=== PATIENT | male | born 1985 | race Caucasian/White ===

== ENCOUNTER 2021-06-29 09:28 | Emergency (ER) | payer OTHER, SELFPAY ==
--- NOTE | ~2021-06-29 | XR_ITS ---
EXAMINATION: XR chest 1V portable EXAM DATE: 06/29/2021 10:15 INDICATION: Cough, cold and hot spells. TECHNIQUE: Portable AP frontal chest x-ray was obtained. There is no prior study for comparison. FINDINGS: The lungs are clear. There are no pleural effusions. Cardiac silhouette is prominent but magnified on this AP technique. There is no pneumothorax suspected. 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 IMPRESSION: 1. No acute cardiopulmonary findings. 2. 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 Reviewed, dictated and finalized at location A. K AND TRANSPORT MECHANIC
[2021-06-29 09:32] VITALS: BP 125/86; PULSE 64; RESP 18; TEMP 36.9; O2SAT 100
--- NOTE | 2021-06-29 10:28 | ECG_ITS ---
Measurements Intervals [place] Rate: 60 P: 56 [place]: 137 QRS: -2 QRSD: 105 T: 29 QT: 399 QTc: 399 Interpretive Statements SINUS RHYTHM NORMAL ECG Electronically Signed On 06-29-2021 12:04:44 VICE ADMIRAL by Eros Lua D.O.
--- NOTE | 2021-06-29 10:42 | ED.GENADULT ---
HPI - General Adult General Chief complaint: Unspecified Stated complaint: cold symptoms Time Seen by Provider: 06/29/21 09:30 Source: RN notes reviewed History of Present Illness HPI narrative: Patient presents emergency room from home for shortness of breath. Patient states that for the past 4 days he has been having feelings of being hot and cold but has had no measured temperature at home. He states over the past 2 days has been having shortness of breath worse with exertion denies any rhinorrhea sore throat cough abdominal pain chest pain nausea vomiting or any other symptoms states that sitting he does not have shortness of breath time. He states that with the symptoms he has had a general feeling of fatigue Related Data Allergies Allergy/AdvReac Type Severity Reaction Status Date / Time No Known Allergies Allergy Mild Verified 04/25/17 07:49 Review of Systems Review of Systems: Gen.: Denies fevers or chills ENT: Denies congestion Respiratory: See HPI CV: Denies chest pain or palpitations GI: Denies abdominal pain nausea, emesis or diarrhea denies burning, urgency, frequency or hematuria Musculoskeletal: Denies back pain or muscle pain Neuro: Denies numbness, tingling, reports generalized fatigue Skin: Denies rash Except as documented, all other systems reviewed and negative [facility] Past Medical History Medical History (Updated 06/29/21 @ 11:59 by Jalen Landis DO) Patient denies significant medical history Family History Family History (Updated 11/10/16 @ 23:56 by DOCTOR UNKNOWN) Mother Patient's mother is in good health Father Patient's father is in good health Sibling Patient's brother is in good health Other Family history of malignant neoplasm of bone Social History Social History Smoking status: Never smoker Alcohol intake: current Exam Narrative: APPEARANCE: No acute distress, nontoxic, resting in bed EYES: EOMI HEENT: Normocephalic, atraumatic, OMM RESPIRATORY: No respiratory distress Clear to auscultation bilaterally with no rhonchi wheezing or rales. CARDIOVASCULAR: Regular rate and rhythm without murmurs rubs or gallops. ABDOMINAL: Soft, nontender, nondistended, no rebound or guarding MUSCULOSKELETAl: Moves all extremities. No clubbing, cyanosis or edema. NEURO: Awake and alert. Following commands, speech normal, no focal deficits SKIN:: Warm, dry. No rashes lesions or abrasions PSYCHIATRIC: Normal affect/mood, Course Course Emergency Course: Patient had a negative Covid test yesterday Discussed with patient results of workup and diagnosis. Discussed need for follow-up with primary care, proper use of medication, and reasons to return to the emergency department. Patient understands and agrees to current treatment plan Vital Signs Vital signs: Vital Signs Temperature 98.4 F 06/29/21 09:32 Pulse Rate 64 06/29/21 09:32 Respiratory Rate 18 06/29/21 09:32 Blood Pressure 125/86 06/29/21 09:32 Pulse Oximetry 100 06/29/21 09:32 Temperature 98.4 F 06/29/21 09:32 Pulse Rate 64 06/29/21 09:32 Respiratory Rate 18 06/29/21 09:32 Blood Pressure 125/86 06/29/21 09:32 Pulse Oximetry 100 06/29/21 09:32 Medical Decision Making MDM Narrative Medical decision making narrative: Patient has dyspnea of unclear etiology. No wheezing on clinical exam. Low risk well score, PE is felt unlikely. No abnormalities noted on chest x-ray. Patient?s EKG is without high-risk changes. Oxygen saturations are normal. Patient is felt to be a reasonable candidate for additional evaluation as an outpatient. Vital Signs Vital Signs: Vital Signs Temperature 98.4 F 06/29/21 09:32 Pulse Rate 64 06/29/21 09:32 Respiratory Rate 18 06/29/21 09:32 Blood Pressure 125/86 06/29/21 09:32 Pulse Oximetry 100 06/29/21 09:32 Temperature 98.4 F 06/29/21 09:32 Pulse Rate 64 06/29/21 09:32 Respi
[2021-06-29 11:00] VITALS: BP 119/79; PULSE 65; RESP 18; O2SAT 99
[2021-06-29 11:00] LABS: Basophils Percent Auto 0.8 % (0.2-1.2); Eosinophils Absolute Auto 0.1 K/mm3 (0-0.3); Eosinophils Percent Auto 1.4 % (0-4.4); Hematocrit 44.1 % (42.0-52.0); Hemoglobin 14.7 g/dL (14.0-18.0); Immature Granulocyte Absolute 0.01 K/mm3 (0.00-0.031); Immature Granulocyte Percent A 0.2 % (0-0.5); Lymphocytes Absolute Auto 1.07 K/mm3 (0.9-3.2); Lymphocytes Percent Auto 21.6 % (18.3-44.2); Mean Corpuscular HGB Conc 33.3 g/dl (32-36); Mean Corpuscular Hemoglobin 27.5 pg (26-34); Mean Corpuscular Volume 82.4 fl (80-100); Mean Platelet Volume 9.2 fl (7.4-10.4); Monocytes Absolute Auto 0.9 K/mm3 (0.1-0.6); Monocytes Percent Auto 18.1 % (2.6-8.5); Neutrophils Absolute Auto 2.9 K/mm3 (1.3-6.7); Neutrophils Percent Auto 57.9 % (45.5-73.1); Platelet Count Result 178 k/mm3 (150-375); Red Blood Count 5.35 M/mm3 (4.6-6.20); Red Cell Distribution Width 14.3 % (11.5-14.5)
[2021-06-29 11:12] LABS: Alanine Aminotransferase 23 U/L (4-50); Albumin Level 4.2 g/dL (3.5-5.1); Alkaline Phosphatase 58 U/L (38-126); Anion Gap 7 mmol/L (8-16); Aspartate Amino Transferase 28 U/L (17-59); Bilirubin,Total 0.5 mg/dL (0.2-1.3); Blood Urea Nitrogen 16 mg/dL (9-20); Calcium 8.7 mg/dL (8.4-10.2); Carbon Dioxide 27 mmol/L (22-30); Chloride 101 mmol/L (98-107); Estimated CRCL calculation 97 ml/min; Estimated Glomerular Filt Rate > 60; Glucose 108 mg/dL (65-110); Potassium 4.1 mmol/L (3.4-5.0); Sodium 135 mmol/L (137-145)
[2021-06-29 11:13] LABS: D Dimer 0.39 ug/mL (<0.48)
[2021-06-29 11:25] LABS: NT Pro B Type Natriuretic Pept 75 pg/mL (5-100); Troponin I < 0.012 ng/mL (0.000-0.034)
[2021-06-29 11:30] VITALS: BP 110/74; PULSE 67; RESP 18; O2SAT 99
[2021-06-29 12:05] VITALS: BP 103/72; PULSE 66; RESP 18; O2SAT 99
== END 2021-06-29 12:05 | disposition home or self-care (01) ==
PROVIDERS: Emergency Provider Emergency Medicine; PCP Family Medicine
DX: R06.00 Dyspnea, unspecified (principal); Q76.49 Other congenital malformations of spine, not associated with scoliosis
CPT/HCPCS: 36415; 71045; 80053; 83880; 84484; 85025; 85380; 93005; 99284

== ENCOUNTER → 2021-07-29 07:16 | Outpatient (CLI) | payer OTHER, SELFPAY ==
[2021-07-29 19:18] LABS: SARS-CoV-2 RNA PCR Negative
== END ==
PROVIDERS: Nurse Practitioner Gerontology; PCP Family Medicine; Visit Provider Family Medicine
DX: R68.89 Other general symptoms and signs (principal); Z20.822 Contact with and (suspected) exposure to COVID-19
CPT/HCPCS: C9803; U0003; U0005

== ENCOUNTER 2024-09-14 22:41 | Emergency (ER) | payer OTHER, SELFPAY ==
--- NOTE | ~2024-09-14 | XR_ITS ---
Clinical Indication: Cough PA and lateral views of the chest: Comparison: 05/29/2021 Findings: The lungs are clear, without evidence of focal consolidation or pleural effusion. Cardiome diastinal silhouette is within normal limits. Bones and soft tissues are unremarkable. Impression: Normal chest. Reviewed, dictated and finalized at [facility]. ANNEALER Impression: Normal chest.
--- OUTSIDE RECORDS SUMMARY | 2024-09-14 22:43 | XMS_ITS | Clinical Summary ---
Author Organization [facility] Address [address] [place] [address] Care Team Providers Care Pre Sales Technical Consultant Name Role Phone Deep Chang MD Primary Care Provider Allergies No known active allergies Medications No known medications Active Problems Problem Noted Date Diagnosed Date Prediabetes 09/11/2023 Assessment & Plan (09/11/2023 1:10 PM WRITER EDITOR): - new, noted on lab work obtained - A1c 5.7 on 09/2023 - manage via lifestyle, healthy diet, and weight control - will continue to monitor Lab Results Component Value Date HGBA1C 5.7 (H) 09/10/2023 Class 1 obesity due to exces s calories without serious comorbidity with body mass index (BMI) of 32.0 to 32.9 in adult 07/19/2021 Assessment & Plan (09/10/2023 1:29 PM WRITER EDITOR): Wt Readings from Last 3 Encounters: 09/10/23 107.2 kg (236 lb 4.8 oz) 12/02/22 104.3 kg (230 lb) 08/21/22 105.4 kg (232 lb 4.8 oz) Body mass index is 32.04 kg/m . - chronic, not at goal, worse --> small weight gain noted - BMI Follow-up includes: nutrition counseling, exercise counseling and education provided Assessment & Plan (08/21/2022 10:22 AM WRITER EDITOR): Wt Readings from Last 3 Encounters: 08/21/22 105.4 kg (232 lb 4.8 oz) 08/02/22 106.1 kg (234 lb) 07/19/21 100.9 kg (222 lb 8 oz) Body mass index is 31.51 kg/m . - chronic, not at goal, small weight gain noted - BMI Follow-up includes: nutrition counseling, exercise counseling and education provided Assessment & Plan (07/19/2021 10:53 AM WRITER EDITOR): Wt Readings from Last 3 Encounters: 07/19/21 100.9 kg (222 lb 8 oz) 07/07/21 99.8 kg (220 lb) Body mass index is 30.17 kg/m . - chronic, stable - BMI Follow-up includes: nutrition counseling, exercise counseling and education provided Preventative health care 07/19/2021 Assessment & Plan (09/11/2023 1:11 PM WRITER EDITOR): - Acute concerns or chronic conditions that are worse: new diagnosis of pre- diabetes, small weight gain with Obesity - Mental health: no significant psychiatric/mental health conditions affecting her day to day functioning - Dental health: up to date, he does regular tooth brushing, flossing, and dental visits every 6 months. - Nutrition: recommend importance of moderation in sodium/caffeine intake, saturated fat and cholesterol, caloric balance, sufficient intake of fresh fruits, vegetables. He has cut out soda intake - Exercise: recommend regular exercise, stays physically active Prostate cancer screening: N/A Colon cancer screening: N/A Lung cancer screening: N/A Assessment & Plan (08/21/2022 10:23 AM WRITER EDITOR): - Acute concerns: no major acute concerns or issues - Mental health: no significant psychiatric/mental health conditions affecting her day to day functioning - Dental health: up to date, he does regular tooth brushing, flossing, and dental visits every 6 months. - Nutrition: recommend importance of moderation in sodium/caffeine intake, saturated fat and cholesterol, caloric balance, sufficient intake of fresh fruits, vegetables. He has cut out soda intake - Exercise: recommend regular exercise, stays physically active Prostate cancer screening: N/A Colon cancer screening: N/A Lung cancer screening: N/A Assessment & Plan (07/19/2021 10:54 AM WRITER EDITOR): - Acute concerns: discussed about hernia - Mental health: no significant psychiatric/mental health conditions affecting her day to day functioning - Dental health: recommend regular tooth brushing, flossing, and dental visits. - Nutrition: recommend importance of moderation in sodium/caffeine intake, saturated fat and cholesterol, caloric balance, sufficient intake of fresh fruits, vegetables - Exercise: recommend regular exercise Umbilical hernia without obstruction and without gangrene 07/19/2021 Assessment & Plan (09/10/2023 1:28 PM WRITER EDITOR): - chronic, stable - small umbilical hernia without obstruction - discussed to continue monitoring given no symptoms and small size - avoid heavy lifting and things that would put a lot of abdominal pressure - aware of signs that would be an emergency, severe abdominal pain, hernia obstruction Assessment & Plan (08/21/2022 10:21 AM WRITER EDITOR): - chronic, stable - small umbilical hernia without obstruction - discussed to continue monitoring given no symptoms and small size - avoid heavy lifting and things that would put a lot of abdominal pressure - aware of signs that would be an emergency, severe abdominal pain, hernia obstruction Assessment & Plan (07/19/2021 10:55 AM WRITER EDITOR): - chronic, stable - small umbilical hernia without obstruction - discussed to continue monitoring given no symptoms and small size - avoid heavy lifting and things that would put a lot of abdominal pressure - can wear abdominal binder - discussed warning sings that would be an emergency, severe abdominal pain, hernia obstruction Scoliosis 07/19/2021 Assessment & Plan (09/10/2023 1:37 PM WRITER EDITOR): - chronic, stable - diagnosed in childhood - no ongoing back pain - no hx of braces or surgery Assessment & Plan (07/19/2021 10:59 AM WRITER EDITOR): - chronic, stable - diagnosed in childhood - no ongoing back pain - no hx of braces or surgery - will obtain imaging in future visits if cannot find one completed in medical records Dermatofibroma 07/19/2021 Assessment & Plan (07/19/2021 11:00 AM WRITER EDITOR): - new diagnosis, noted on left lower extremity, discussed etiology and benign status, continue to monitor from time to time for changes in shape, size, color Resolved Problems Problem Noted Date Diagnosed Date Resolved Date Microscopic hematuria 07/19/20212023 Assessment & Plan (08/21/2022 10:22 AM WRITER EDITOR): - reviewed outside records - noted in the past and was supposed to have repeat done - repeat UA with microscopy ordered - if consecutive abnormal findings, will refer to Urology Assessment & Plan (07/19/2021 10:53 AM WRITER EDITOR): - new diagnosis - reviewed outside records - discussed that it needs to be repeated - order placed for UA microscopic in 3 months - if consecutive abnormal findings, will refer to Urology Immunizations Name Administration Dates Next Due Influenza, Quadrivalent, Liv l Culture-based MDCK, Preservative Free, Antibiotic Free, Intramuscular 05/15/2019 Influenza, Quadrivalent, Spl it, Preservative Free, Intramuscular 07/19/2021,05/09/2018 Influenza, Trivalent, Preser vative Free, Intramuscular 05/21/2017 Influenza, Unspecified 09/10/2023(Deferr ed: Patient Refused),08/21/2022(Deferred: Patient Refused),05/06/2020(Deferred: Patient Refused) Tdap 10/08/2013 Family History Medical History Relation Name Comments Bipolar disorder Brother No Known Problems Son 1 No Known Problems Son 2 Relation Name Status Comments Brother Alive Daughter Alive Son 1 Alive Son 2 Alive Social History Tobacco Use Types Packs/Day Years Used Date Smoking Tobacco: Never Smokeless Tobacco: Never Tobacco Cessation:Counseling Given: Not Answered AUDIT-C Answer Date Recorded Q1: How often do you have a drink containing alcohol? Never 09/10/2023 Q2: How many drinks containi ng alcohol do you have on a typical day when you are drinking? Patient does not drink Q3: How often do you have si x or more drinks on one occasion? Never 09/10/2023 PHQ-2 Answer Date Recorded PHQ-2 Total Score (If total score is 3 or more points, staff should administer the PHQ-9) 0 09/10/2023 Personal Safety Answer Date Recorded Getting School Help Needed Not on file 07/27 Sex and Gender Information Value Date Recorded Sex Assigned at Not on file Legal Sex Male 1:28 PM WRITER EDITOR Gender Identity Not on file Sexual Orientation Not on file Obstetrics History Last Filed Vital Signs Vital Sign Reading Time Taken Comments Blood Pressure 122/81 01/25/2024 8:07 AM CDT Pulse 74 01/25/2024 8:07 AM CDT Temperature 37.1 C (98.8 F) 01/25/2024 8:07 AM CDT Respiratory Rate 20 01/25/2024 8:07 AM CDT Oxygen Saturation 98% 01/25/2024 8:07 AM CDT Inhaled Oxygen Concentration - - Weight 105.2 kg (232 lb) 01/25/2024 8:07 AM CDT Height 182.9 cm (6') 01/25/2024 8:07 AM CDT Body Mass Index 31.46 01/25/2024 8:07 AM CDT Plan of Treatment Health Maintenance Due Date Last Done Comments Hepatitis C Screening 1983 Varicella Vaccines (1 of 2 - 13+ 2-dose series) 1996 Hepatitis B Screening 2001 DTaP/Tdap/Td Vaccine (2 - Td or Tdap) 10/09/2023 10/08/2013 Covid-19 Vaccine ( season) 2024 04/13/2021, 03/23/2021 Influenza Vaccine (#1) 2024 , 05/15/2019, 05/09/2018, Additional history exists Depression Screening 09/10/2024 09/10/2023, 08/21/2022, 07/19/2021 Regular Well Visit/Exam 18-64 09/10/2024 09/10/2023, 08/21/2022, 07/19/2021 HPV Vaccines Aged Out No longer eligi ble based on patient's age to complete this topic Pneumococcal vaccine <65 Aged Out No longer eligible based on patient's age to complete this topic Insurance [facility] [place] [id number] [employer] [place] [id number] [facility] [place] [id number] [employer] [place] [id number] Care Teams Pre Sales Technical Consultant Relationship Specialty Start Date End Date Deep Chang MD PCP - General Family Medicine 07/19/21
--- OUTSIDE RECORDS SUMMARY | 2024-09-14 22:43 | XMS_ITS | Patient Health Summary ---
Author Organization [facility] Address [address] [place] [address] Care Team Providers Care Tooling Specialist Name Role Phone Clara Garg MD Primary Care Provider + Note from [facility],non-owned Affiliates and Associated Physician Practices is amultiple site organization consisting of ambulatory clinics and hospital sitesin [place], [place], [place] and [place]. This disclosure is being madepursuant to the Care Everywhere program and may not contain all information available regarding this patient. Last updated 18.[facility] Allergies No known active allergies Medications Be aware that medications may not be up to date on this document. Always verify current medications with the patient. No known medications Social History Tobacco Use Types Packs/Day Years Used Date Smoking Tobacco: Never Smokeless Tobacco: Never Sex and Gender Information Value Date Recorded Sex Assigned at Not on file Gender Identity Not on file Sexual Orientation Not on file Last Filed Vital Signs Vital Sign Reading Time Taken Comments Blood Pressure 128/86 01/03/2019 11:06 AM CDT Pulse 89 01/03/2019 11:06 AM CDT Temperature 36.9 C (98.4 F) 01/03/2019 11:06 AM CDT Respiratory Rate 16 01/03/2019 11:06 AM CDT Oxygen Saturation 96% 01/03/2019 11:06 AM CDT Inhaled Oxygen Concentration - - Weight 99.8 kg (220 lb) 01/03/2019 11:06 AM CDT Height 185.4 cm (6' 1 ) 01/03/2019 11:06 AM CDT Body Mass Index 29.03 01/03/2019 11:06 AM CDT Procedures * CULTURE THROAT(Performed 03/02/2018) Performed for Acute pharyngitis, unspecified etiology * STREP A SCREEN - POINT OF CARE (AMB) STL(Performed 03/02/2018) Performed for Acute pharyngitis, unspecified etiology Results * CULTURE THROAT (03/02/2018 3:04 PM CDT) Culture [facility] Comment: CULTURE, THROAT MICRO NUMBER: [id number] TEST STATUS: FINAL SPECIMEN SOURCE: THROAT SPECIMEN QUALITY: ADEQUATE RESULT: No oropharyngeal pathogens recovered. Test Performed at: [email or web address] [id number] KARLIE CAN MD Microbiology ENTIRE THROAT (SURFACE REGION OF NECK) / Unknown 03/02/2018 3:04 PM CDT 03/02/2018 10:58 PM CDT [facility] - MICROBIOLOG Y ORDERABLES [address] [address] * STREP A SCREEN (03/02/2018 2:55 PM CDT) Strep A Rapid POCT Negative Negative Strep A Internal Control Present Lot # [id number] Expiration Date 08 22 2019 Throat ENTIRE THROAT (SURFACE REGION OF NECK) / Unknown 03/02/2018 2:55 PM CDT [facility] - POINT OF CA RE ORDERABLES Care Teams Tooling Specialist Relationship Specialty Start Date End Date Clara Garg MD [address] [place] [address] PCP - General Family Medicine 03/02/18
--- OUTSIDE RECORDS SUMMARY | 2024-09-14 22:43 | XMS_ITS | Referral Summary ---
Author Organization [facility] Address [address] [place] [address] Care Team Providers Care Online Affiliate Marketing Manager Name Role Phone Deep Chang MD Primary Care Provider Allergies No known active allergies Medications No known medications Active Problems Problem Noted Date Diagnosed Date Prediabetes 09/11/2023 Assessment & Plan (09/11/2023 1:10 PM DELINQUENT ACCOUNT CLERK): - new, noted on lab work obtained [...] 07/19/2021 Assessment & Plan (09/10/2023 1:29 PM DELINQUENT ACCOUNT CLERK): Wt Readings from Last 3 Encounters: 09/10/23 107.2 kg (236 lb 4.8 oz) 12/02/22 104.3 kg (230 lb) 08/21/22 105.4 kg (232 lb 4.8 oz) Body mass index is 32.04 kg/m . - chronic, not at goal, worse --> small weight gain noted - BMI Follow-up includes: nutrition counseling, exercise counseling and education provided Assessment & Plan (08/21/2022 10:22 AM DELINQUENT ACCOUNT CLERK): Wt Readings from Last 3 Encounters: 08/21/22 105.4 kg (232 lb 4.8 oz) 08/02/22 106.1 kg (234 lb) 07/19/21 100.9 kg (222 lb 8 oz) Body mass index is 31.51 kg/m . - chronic, not at goal, small weight gain noted - BMI Follow-up includes: nutrition counseling, exercise counseling and education provided Assessment & Plan (07/19/2021 10:53 AM DELINQUENT ACCOUNT CLERK): Wt Readings from Last 3 Encounters: 07/19/21 100.9 kg (222 lb 8 oz) 07/07/21 99.8 kg (220 lb) Body mass index is 30.17 kg/m . - chronic, stable - BMI Follow-up includes: nutrition counseling, exercise counseling and education provided Preventative health care 07/19/2021 Assessment & Plan (09/11/2023 1:11 PM DELINQUENT ACCOUNT CLERK): - Acute concerns or chronic conditions that [...] N/A Assessment & Plan (08/21/2022 10:23 AM DELINQUENT ACCOUNT CLERK): - Acute concerns: no major acute concerns [...] N/A Assessment & Plan (07/19/2021 10:54 AM DELINQUENT ACCOUNT CLERK): - Acute concerns: discussed about hernia - [...] 07/19/2021 Assessment & Plan (09/10/2023 1:28 PM DELINQUENT ACCOUNT CLERK): - chronic, stable - small umbilical hernia without obstruction - discussed to continue monitoring given no symptoms and small size - avoid heavy lifting and things that would put a lot of abdominal pressure - aware of signs that would be an emergency, severe abdominal pain, hernia obstruction Assessment & Plan (08/21/2022 10:21 AM DELINQUENT ACCOUNT CLERK): - chronic, stable - small umbilical hernia without obstruction - discussed to continue monitoring given no symptoms and small size - avoid heavy lifting and things that would put a lot of abdominal pressure - aware of signs that would be an emergency, severe abdominal pain, hernia obstruction Assessment & Plan (07/19/2021 10:55 AM DELINQUENT ACCOUNT CLERK): - chronic, stable - small umbilical hernia without obstruction - discussed to continue monitoring given no symptoms and small size - avoid heavy lifting and things that would put a lot of abdominal pressure - can wear abdominal binder - discussed warning sings that would be an emergency, severe abdominal pain, hernia obstruction Scoliosis 07/19/2021 Assessment & Plan (09/10/2023 1:37 PM DELINQUENT ACCOUNT CLERK): - chronic, stable - diagnosed in childhood - no ongoing back pain - no hx of braces or surgery Assessment & Plan (07/19/2021 10:59 AM DELINQUENT ACCOUNT CLERK): - chronic, stable - diagnosed in childhood - no ongoing back pain - no hx of braces or surgery - will obtain imaging in future visits if cannot find one completed in medical records Dermatofibroma 07/19/2021 Assessment & Plan (07/19/2021 11:00 AM DELINQUENT ACCOUNT CLERK): - new diagnosis, noted on left lower extremity, discussed etiology and benign status, continue to monitor from time to time for changes in shape, size, color Resolved Problems Problem Noted Date Diagnosed Date Resolved Date Microscopic hematuria 07/19/20212023 Assessment & Plan (08/21/2022 10:22 AM DELINQUENT ACCOUNT CLERK): - reviewed outside records - noted in the past and was supposed to have repeat done - repeat UA with microscopy ordered - if consecutive abnormal findings, will refer to Urology Assessment & Plan (07/19/2021 10:53 AM DELINQUENT ACCOUNT CLERK): - new diagnosis - reviewed outside records [...] Refused),08/21/2022(Deferred: Patient Refused),05/06/2020(Deferred: Patient Refused) Tdap 10/08/2013 Social History Tobacco Use Types Packs/Day Years [...] on file Legal Sex Male 1:28 PM DELINQUENT ACCOUNT CLERK Gender Identity Not on file Sexual Orientation [...] 01/25/2024 8:07 AM CDT Plan of Treatment Not on file Insurance [facility] [place] [id number] [facility] [place] [address] [employer] PPO [employer] PPO Care Teams Online Affiliate Marketing Manager Relationship Specialty Start Date End Date Deep Chang MD PCP - General Family Medicine 07/19/21
--- OUTSIDE RECORDS SUMMARY | 2024-09-14 22:43 | XMS_ITS | Referral Summary ---
Author Organization [facility] Address [address] [place] [address] Care Team Providers Care Lift Mechanic Name Role Phone Clara Garg MD Primary Care Provider + Source Comments [facility],non-owned Affiliates and Associated Physician Practices is amultiple site organization consisting of ambulatory clinics and hospital sitesin [place], [place], [place] and [place]. This disclosure is being madepursuant to the Care Everywhere program and may not contain all information available regarding this patient. Last updated [email or web address] Allergies No known active allergies Medications Be [...] Mass Index 29.03 01/03/2019 11:06 AM CDT Plan of Treatment Not on file Care Teams Lift Mechanic Relationship Specialty Start Date End Date Clara Garg MD [address] [place] [address] PCP - General Family Medicine 03/02/18
--- OUTSIDE RECORDS SUMMARY | 2024-09-14 22:43 | XMS_ITS | Clinical Summary ---
Author Organization [facility] Address [address] [place] [address] Care Team Providers Care Vp Of Customer Experience Strategy Name Role Phone Unavailable Primary Care Provider Unavailabl e Social History Tobacco Use Types Packs/Day Years Used Date Smoking Tobacco: Never Assessed Sex and Gender Information Value Date Recorded Sex Assigned at Not on file Legal Sex Male 1:15 PM CDT Gender Identity Not on file Sexual Orientation Not on file Plan of Treatment Health Maintenance Due Date Last Done Comments Annual Physical 1986 Hepatitis C 2001 Hepatitis B Vaccines (1 of 3 - 19+ 3-dose series) 2002 DTaP, Tdap and Td Vaccines (2 - Td or Tdap) 10/09/2023 10/08/2013 COVID-19 Vaccine (3 - season) 2024 04/13/2021, 03/23/2021 Influenza Adult (#1) 2024 07/19/2021, 05/15/2019, 05/09/2018, Additional history exists HPV Vaccines Aged Out No longer eligi ble based on patient's age to complete this topic Meningococcal B Vaccine Aged Out No l onger eligible based on patient's age to complete this topic Meningococcal Vaccine Aged Out No yo keiry eligible based on patient's age to complete this topic Pneumococcal Vaccine: Pediatrics (0 to 5 Years) and At-Risk Patients (6 to 64 Years) Aged Out No longer eligible based on patient's age to complete this topic RSV Immunizations Under 20 Months Aged Out No longer eligible based on patient's age to complete this topic
--- OUTSIDE RECORDS SUMMARY | 2024-09-14 22:43 | XMS_ITS | Continuity of Care Document ---
Author Name [facility] Organization [facility] Care Team Providers Care Business Services Specialist Sales Name Role Phone [facility] Unavailable Unavailable Allergies, Adverse Reactions, Alerts Combined list of allergies from Department of Defense and Veterans Affairs facilities. It does not include entries that were removed or entered in error. Substance Category Reaction Severity Reaction type Status Date Reported Comments Source No Known Allergies Drug allergy (disorder) active 09/28/[address] [place] [address] [place] [facility] Encounters Combined list of: 1) Encounters from Department of Veterans Affairs facilities going backup to the last 18 months, not all [place] inpatient encounters are included; 2) Encounters from the Department of Defense facilities going backup to 280 months. Location Location Details Encounter Type Encounter Number Reason For Visit Attending Provider ADM Date DC Date Status Disposition Source [address] [place] [address] Gabriel [place] [facility] ) TELE CONSULT [id number] 1 Notes Entered by: CECILY ESTRELLA 11 Aug 2021 1309 ------- ------- ------- ------- -- Bi haynes - - tsg JOSE GARCÍA 08/11 Other Not Elsewhere Classified [address] [place] [address] Gabriel [place] [facility] [address] [place] [address] Gabriel [place] [facility] ) TELE CONSULT [id number] Notes Entered by: DEVON PALOMARES 12 Sep 2021 1019 ------- ------- ------- ------- -- Ervin haynes/non enrolle e/ JOSE GARCÍA 09/12 Other Not Elsewhere Classified [address] [place] [address] Gabriel JACKSON [facility] [address] [place] [address] Gabriel [place]en [facility] ) TELE CONSULT [id number] 6 Notes Entered by: ELIZABETH OTTO 14 Sep 2021 1010 ------- ------- ------- ------- -- non enrolle e-pre employm ent physica l/[phone] JOSE Angelo 09/14 Other Not Elsewhere Classified [address] [place] [address])([facility]) [address] [place] [address])([facility] ) TELE CONSULT [id number] Notes Entered by: AMANDO BANDA 30 Sep 2021 1201 ------- ------- ------- ------- -- Resched ule Appt Request /Non-en rollee/ JOSE GUADALUPE CEBALLOS 09/30 Referred for Appointment [address] [place] [address] Gabriel [facility])([facility]) [address] [place] [address] Gabriel [facility])([facility]) OUTPATIENT [id number] Pre-Emp loyment QUEENIE LIN 10/06 Released w/o Limitations [address] [place] [address])([facility]) Procedures Combined list of: 1) Procedures from Department of Veterans Affairs facilities [facility], not all [place] non-surgical procedures are included; 2) All procedures from the Department of Defense facilities. Procedure Procedure Type Code Date Perfomer Comments Sourc e QUALIFIED NONPHYSICIAN HEALTH UNIVERSAL BANKER ONLINE DIGITAL ASSESSMENT AND MANAGEMENT, FOR AN ESTABLISHED PATIENT, FOR UP TO 7 DAYS, CUMULATIVE TIME DURING THE 7 DAYS; 5-10 MINUTES 10/07/2021 [facility] TELE ASSESS & MGT SRV PROV QUAL NONPHYS HLTH CARE PRO TO EST PAT,PARENT,GUARD NOT ORIG REL ASSESS & MGT SRV PROV W/IN PREV 7 DAYS NOR LEAD ASSESS & MGT SRV/PX W/IN NXT 24 HR/SOON APT;5-10 MIN MED DIS 09/14/2021 [facility] TELE ASSESS & MGT SRV PROV QUAL NONPHYS HLTH CARE PRO TO EST PAT,PARENT,GUARD NOT ORIG REL ASSESS & MGT SRV PROV W/IN PREV 7 DAYS NOR LEAD ASSESS & MGT SRV/PX W/IN NXT 24 HR/SOON APT;5-10 MIN MED DIS 09/12/2021 [facility] TELE ASSESS & MGT SRV PROV QUAL NONPHYS HLTH CARE PRO TO EST PAT,PARENT,GUARD NOT ORIG REL ASSESS & MGT SRV PROV W/IN PREV 7 DAYS NOR LEAD ASSESS & MGT SRV/PX W/IN NXT 24 HR/SOON APT;5-10 MIN MED DIS 08/11/2021 [facility] Non-Physician Phone Call To Patient/Provider Brief (5-10min) Non-Physician Phone Call To Patient/Provider Brief (5-10min) [id number] JOSE GARCÍA [facility] Preventive Medicine Administration Of Health Risk Questionnaire Patient-Focused Preventive Medicine Administration Of Health Risk Questionnaire Patient-Focused [id number] QUEENIE LIN [facility] Internet Med Svc Qual Nonphys Healthcare Prof Up To 7 Days Estab Pt 5-10 Min Internet Med Svc Qual Nonphys Healthcare Prof Up To 7 Days Estab Pt 5-10 Min [id number] QUEENIE LIN [facility] Social History Combined list of available smoking, tobacco, and other social history from Department of Defense and Veterans Affairs facilities. Social History Type Response Date Comment Sourc e This section is an empty social history section. [facility]
--- OUTSIDE RECORDS SUMMARY | 2024-09-14 22:43 | XMS_ITS | Clinical Summary ---
Author Organization [facility] Address [address] [place] [address] Care Team Providers Care Rn Picu Name Role Phone Clara Garg MD Primary Care Provider + Source Comments [facility],non-owned Affiliates and Associated Physician Practices is amultiple site organization consisting of ambulatory clinics and hospital sitesin [place], [place], [place] and [place]. This disclosure is being madepursuant to the Care Everywhere program and may not contain all information available regarding this patient. Last updated 18.[employer] Allergies No known active allergies Medications Be [...] 01/03/2019 11:06 AM CDT Plan of Treatment Health Maintenance Due Date Last Done Comments LIPID TESTING 1983 HIV SCREENING 1998 HEPATITIS C SCREENING 03/23/2001 DTAP/TDAP/TD VACCINES (1 - Tdap) 2002 HEPATITIS B VACCINE (1 of 3 - 19+ 3-dose series) 2002 COVID-19 VACCINE (1 - 2023-2 5 season) 2024 INFLUENZA VACCINE (#1) 2024 DEPRESSION SCREENING 08/06/2024 ZOSTER VACCINE (1 of 2) 2033 HIB VACCINE Aged Out No longer eligi ble based on patient's age to complete this topic HPV VACCINE Aged Out No longer eligi ble based on patient's age to complete this topic MENINGOCOCCAL (Group B) VACCINE Aged Out No longer eligible based on patient's age to complete this topic MENINGOCOCCAL VACCINE Aged Out No yo keiry eligible based on patient's age to complete this topic PNEUMOCOCCAL VACCINE Aged Out No long er eligible based on patient's age to complete this topic Care Teams Rn Picu Relationship Specialty Start Date End Date Clara Garg MD [address] [place] [address] PCP - General Family Medicine 03/02/18
[2024-09-14 22:54] VITALS: BP 122/77; PULSE 65; RESP 19; TEMP 36.4; O2SAT 95
[2024-09-14 22:57] VITALS: O2SAT 94
--- NOTE | 2024-09-14 23:08 | ED.URI ---
HPI - URI/Sore Throat General Chief Complaint: Upper Respiratory Infection Stated Complaint: fever, cough Time Seen by Provider: 09/14/24 22:54 History of Present Illness HPI Narrative: 39-year-old male with no past medical history presents emergency department for URI symptoms for the past 3 days. Patient reporting productive cough, nasal congestion, sore throat and ear fullness. Patient states his children were sick with similar symptoms a few days before his symptoms started. He reports fevers at home around 101-102 at home for which he has been taking ibuprofen with some improvement. Denies abdominal pain, N/ V/D. Related Data Allergies Allergy/AdvReac Type Severity Reaction Status Date / Time No Known Allergies Allergy Mild Verified 09/14/24 22:59 Review of Systems Review of Systems: All systems reviewed & are unremarkable except as noted in HPI and below PMFSH Past Medical History Medical History Patient denies significant medical history Family History Family History Mother Patient's mother is in good health Father Patient's father is in good health Sibling Patient's brother is in good health Other Family history of malignant neoplasm of bone Social History Social History Smoking status: Never smoker Alcohol intake: current Exam Narrative: GENERAL: Well-appearing, well-nourished, and in no acute distress. HEAD: Normocephalic, atraumatic. EYES: PERRLA and EOMI. ENT: Nares clear, no rhinorrhea or epistaxis. Mucous membranes moist. right TM with effusion, no erythema or bulging, left TM is unremarkable. Normal canals. Posterior pharynx with mild erythema, no tonsillar exudates or hypertrophy, no uvular deviation, no trismus. Patient tolerating secretions NECK: Supple. CHEST: Coarse breath sounds in the left lower lung field, otherwise no adventitious lung sounds. Patient satting 95% on room air in no distress HEART: Regular rate and rhythm. No murmur heard. Normal peripheral pulses. ABDOMEN: Soft, nontender, nondistended, normal active bowel sounds. EXTREMITIES: Normal range of motion. No edema. SKIN: Warm, dry, no rash. NEURO: No focal deficits. Alert and oriented x3 Course Vital Signs Vital signs: Vital Signs Temperature 97.5 F L 09/14/24 22:54 Pulse Rate 65 09/14/24 22:54 Respiratory Rate 19 09/14/24 22:54 Blood Pressure 122/77 09/14/24 22:54 Pulse Oximetry 95 09/14/24 22:54 Oxygen Delivery Room Air 09/14/24 22:54 Temperature 97.5 F L 09/14/24 22:54 Pulse Rate 65 09/14/24 22:54 Respiratory Rate 19 09/14/24 22:54 Blood Pressure 122/77 09/14/24 22:54 Pulse Oximetry 98 09/15/24 00:02 Oxygen Delivery Room Air 09/14/24 22:57 MDM - URI/Sore Throat MDM Narrative Medical decision making narrative: 39-year-old male presents emergency department for URI symptoms for the past 3 days. Vitals are stable. Exam is significant for the above. Viral swabs obtained which show a positive influenza a, consistent with patient's presentation. Strep test obtained which is negative. Chest x-ray shows no evidence of pneumonia. Patient updated on results. He was given Tylenol and ibuprofen prescriptions for symptomatic control, advised to increase fluid intake. Return precautions discussed. He is agreeable with the plan verbalized understanding. Discharged in stable condition. Lab Data Labs: Lab Results 09/14/24 09/14/24 Range/Units 23:00 23:42 Influenza A (RT-PCR) Positive A (Negative) Influenza B (RT-PCR) Negative (Negative) RSV (RT-PCR) Negative (Negative) SARS-CoV-2 RNA (RT-PCR) Negative (Negative) Group A Strep (PCR) Not detected (Negative) Discharge Plan Discharge Clinical Impression: Influenza A Patient Disposition: Home, Self-Care Condition: Stable Instructions: Antibiotic Form, Influenza (ED) Additional Instructions: Drink plenty of fluids. Alternating Tylenol ibuprofen as directed. Return to the emergency department if you develop inability to tolerate food or fluids, significantly worsening cough or shortness of breath, or other concerning symptoms. Patient Language: Ukrainian Prescriptions: New acetaminophen 500 mg capsule 1,000 mg PO Q6H PRN (Reason: fever or pain) Qty: 20 0RF ibuprofen 800 mg tablet 800 mg PO TID PRN (Reason: pain) Qty: 20 0RF Follow-up/Referrals: Forest,Clara Flores MD [Non-Staff] -
--- OUTSIDE RECORDS SUMMARY | 2024-09-14 23:29 | XMS_ITS | Patient Health Summary ---
Author Organization [facility] [employer] Address [address] [place] [address] Care Team Providers Care Audit Practice Intern Name Role Phone Clara Garg MD Primary Care Provider + Note from [facility],non-owned Affiliates and Associated Physician Practices is amultiple site organization consisting of ambulatory clinics and hospital sitesin [place], [place], [place] and [place]. This disclosure is being madepursuant to the Care Everywhere program and may not contain all information available regarding this patient. Last updated 18.[facility] Allergies No known active allergies Medications Be [...] Culture QUEST Comment: CULTURE, THROAT MICRO NUMBER: [id number] TEST STATUS: FINAL SPECIMEN SOURCE: THROAT SPECIMEN QUALITY: ADEQUATE RESULT: No oropharyngeal pathogens recovered. Test Performed at: [facility] [address] KARLIE CAN MD Microbiology ENTIRE THROAT (SURFACE REGION OF NECK) / Unknown 03/02/2018 3:04 PM CDT 03/02/2018 10:58 PM CDT [facility] - MICROBIOLOG Y ORDERABLES [address] [address] * STREP A SCREEN (03/02/2018 2:55 PM CDT) Strep A Rapid POCT Negative Negative Strep A Internal Control Present Lot # [id number] Expiration Date 08 22 2019 Throat ENTIRE THROAT (SURFACE REGION OF NECK) / Unknown 03/02/2018 2:55 PM CDT [facility] - POINT OF CA RE ORDERABLES Care Teams Audit Practice Intern Relationship Specialty Start Date End Date Clara Garg MD [address] [place] [address] PCP - General Family Medicine 03/02/18
--- OUTSIDE RECORDS SUMMARY | 2024-09-14 23:29 | XMS_ITS | Clinical Summary ---
Author Organization [facility] Address [address] [place] [address] Care Team Providers Care Manufacturing Assembler Name Role Phone Clara Garg MD Primary Care Provider + Source Comments [facility],non-owned Affiliates and Associated Physician Practices is amultiple site organization consisting of ambulatory clinics and hospital sitesin [place], [place], [place] and [place]. This disclosure is being madepursuant to the Care Everywhere program and may not contain all information available regarding this patient. Last updated 18.[facility] Allergies No known active allergies Medications Be [...] age to complete this topic Care Teams Manufacturing Assembler Relationship Specialty Start Date End Date Clara Garg MD [address] [place] [address] PCP - General Family Medicine 03/02/18
--- OUTSIDE RECORDS SUMMARY | 2024-09-14 23:29 | XMS_ITS | Continuity of Care Document ---
Author Name [facility] Organization [facility] Care Team Providers Care Floatman Name Role Phone [facility] Unavailable Unavailable Allergies, Adverse Reactions, Alerts Combined list of allergies from Department of Defense and Veterans Affairs facilities. It does not include entries that were removed or entered in error. Substance Category Reaction Severity Reaction type Status Date Reported Comments Source No Known Allergies Drug allergy (disorder) active 09/28/[address] [place] [address] [place] [facility] Encounters Combined list of: 1) Encounters from Department of Veterans Affairs facilities going backup to the last 18 months, not all [place] inpatient encounters are included; 2) Encounters from the Department of Defense facilities going backup to 280 months. Location Location Details Encounter Type Encounter Number Reason For Visit Attending Provider ADM Date DC Date Status Disposition Source [address] [place] [address] Gabriel [place] [facility] ) TELE CONSULT [id number] 1 Notes Entered by: CECILY ESTRELLA 11 Aug 2021 1309 ------- ------- ------- ------- -- Bi haynes - - tsg JOSE GARCÍA 08/11 Other Not Elsewhere Classified [address] [place] [address] Gabriel [place] [facility] [address] [place] [address] [place] [facility] ) TELE CONSULT [id number] 3 Notes Entered by: DEVON PALOMARES 12 Sep 2021 1019 ------- ------- ------- ------- -- Ervin haynes/non enrolle e/ JOSE GARCÍA 09/12 Other Not Elsewhere Classified [address] [place] [address] Gabriel JACKSON [facility] [place]) [address] [place] [address] Gabriel [place] [facility] ) TELE CONSULT [id number] 6 Notes Entered by: ELIZABETH OTTO 14 Sep 2021 1010 ------- ------- ------- ------- -- non enrolle e-pre employm ent physica l/[phone] JOSE Angelo 09/14 Other Not Elsewhere Classified [address] [place] [address])([facility]) [address] [place] [address])([facility] ) TELE CONSULT [id number] 8 Notes Entered by: AMANDO BANDA 30 Sep 2021 1201 ------- ------- ------- ------- -- Resched ule Appt Request /Non-en rollee/ JOSE GUADALUPE CEBALLOS 09/30 Referred for Appointment [address] [place] [address] Gabriel [facility]) [address] [place] [address] Gabriel [facility])([facility]) OUTPATIENT [id number] Pre-Emp loyment QUEENIE LIN 10/06 Released w/o Limitations [address] [place] [address])([facility]) Procedures Combined list of: 1) Procedures from Department of Veterans Affairs facilities [facility], not all [place] non-surgical procedures are included; 2) All procedures from the Department of Defense facilities. Procedure Procedure Type Code Date Perfomer Comments Sourc e QUALIFIED NONPHYSICIAN HEALTH BLOOD COORDINATOR ONLINE DIGITAL ASSESSMENT AND MANAGEMENT, FOR AN ESTABLISHED PATIENT, FOR UP TO 7 DAYS, CUMULATIVE TIME DURING THE 7 DAYS; 5-10 MINUTES 10/07/2021 [facility] TELE ASSESS & MGT SRV [...] Non-Physician Phone Call To Patient/Provider Brief (5-10min) [id number] JOSE GARCÍA [facility] Preventive Medicine Administration Of Health Risk Questionnaire Patient-Focused Preventive Medicine Administration Of Health Risk Questionnaire Patient-Focused [id number] QUEENIE LIN [facility] Internet Med Svc Qual Nonphys Healthcare Prof Up To 7 Days Estab Pt 5-10 Min Internet Med Svc Qual Nonphys Healthcare Prof Up To 7 Days Estab Pt 5-10 Min [id number] QUEENIE LIN [facility] Social History Combined list of available smoking, tobacco, and other social history from Department of Defense and Veterans Affairs facilities. Social History Type Response Date Comment Sourc e This section is an empty social history section. [facility]
--- OUTSIDE RECORDS SUMMARY | 2024-09-14 23:29 | XMS_ITS | Referral Summary ---
Author Organization [facility] Address [address] [place] [address] Care Team Providers Care Mineral Wool Insulation Supervisor Name Role Phone Clara Garg MD Primary Care Provider + Source Comments [facility],non-owned Affiliates and Associated Physician Practices is amultiple site organization consisting of ambulatory clinics and hospital sitesin [place], [place], [place] and [place]. This disclosure is being madepursuant to the Care Everywhere program and may not contain all information available regarding this patient. Last updated 18.[facility] Allergies No known active allergies Medications Be [...] of Treatment Not on file Care Teams Mineral Wool Insulation Supervisor Relationship Specialty Start Date End Date Clara Garg MD [address] [place] [address] PCP - General Family Medicine 03/02/18
--- OUTSIDE RECORDS SUMMARY | 2024-09-14 23:29 | XMS_ITS | Clinical Summary ---
Author Organization [facility] Address [address] [place] [address] Care Team Providers Care Fire Sprinkler Apparatus Inspector Name Role Phone Unavailable Primary Care Provider [...]
--- OUTSIDE RECORDS SUMMARY | 2024-09-14 23:29 | XMS_ITS | Referral Summary ---
Author Organization [facility] al Address [address] [place] [address] Care Team Providers Care Retail Sales Director Name Role Phone Deep Chang MD Primary Care Provider Allergies No known active allergies Medications No known medications Active Problems Problem Noted Date Diagnosed Date Prediabetes 09/11/2023 Assessment & Plan (09/11/2023 1:10 PM SUPERVISOR HAND WORKERS): - new, noted on lab work obtained [...] 07/19/2021 Assessment & Plan (09/10/2023 1:29 PM SUPERVISOR HAND WORKERS): Wt Readings from Last 3 Encounters: 09/10/23 107.2 kg (236 lb 4.8 oz) 12/02/22 104.3 kg (230 lb) 08/21/22 105.4 kg (232 lb 4.8 oz) Body mass index is 32.04 kg/m . - chronic, not at goal, worse --> small weight gain noted - BMI Follow-up includes: nutrition counseling, exercise counseling and education provided Assessment & Plan (08/21/2022 10:22 AM SUPERVISOR HAND WORKERS): Wt Readings from Last 3 Encounters: 08/21/22 105.4 kg (232 lb 4.8 oz) 08/02/22 106.1 kg (234 lb) 07/19/21 100.9 kg (222 lb 8 oz) Body mass index is 31.51 kg/m . - chronic, not at goal, small weight gain noted - BMI Follow-up includes: nutrition counseling, exercise counseling and education provided Assessment & Plan (07/19/2021 10:53 AM SUPERVISOR HAND WORKERS): Wt Readings from Last 3 Encounters: 07/19/21 100.9 kg (222 lb 8 oz) 07/07/21 99.8 kg (220 lb) Body mass index is 30.17 kg/m . - chronic, stable - BMI Follow-up includes: nutrition counseling, exercise counseling and education provided Preventative health care 07/19/2021 Assessment & Plan (09/11/2023 1:11 PM SUPERVISOR HAND WORKERS): - Acute concerns or chronic conditions that [...] N/A Assessment & Plan (08/21/2022 10:23 AM SUPERVISOR HAND WORKERS): - Acute concerns: no major acute concerns [...] N/A Assessment & Plan (07/19/2021 10:54 AM SUPERVISOR HAND WORKERS): - Acute concerns: discussed about hernia - [...] 07/19/2021 Assessment & Plan (09/10/2023 1:28 PM SUPERVISOR HAND WORKERS): - chronic, stable - small umbilical hernia without obstruction - discussed to continue monitoring given no symptoms and small size - avoid heavy lifting and things that would put a lot of abdominal pressure - aware of signs that would be an emergency, severe abdominal pain, hernia obstruction Assessment & Plan (08/21/2022 10:21 AM SUPERVISOR HAND WORKERS): - chronic, stable - small umbilical hernia without obstruction - discussed to continue monitoring given no symptoms and small size - avoid heavy lifting and things that would put a lot of abdominal pressure - aware of signs that would be an emergency, severe abdominal pain, hernia obstruction Assessment & Plan (07/19/2021 10:55 AM SUPERVISOR HAND WORKERS): - chronic, stable - small umbilical hernia without obstruction - discussed to continue monitoring given no symptoms and small size - avoid heavy lifting and things that would put a lot of abdominal pressure - can wear abdominal binder - discussed warning sings that would be an emergency, severe abdominal pain, hernia obstruction Scoliosis 07/19/2021 Assessment & Plan (09/10/2023 1:37 PM SUPERVISOR HAND WORKERS): - chronic, stable - diagnosed in childhood - no ongoing back pain - no hx of braces or surgery Assessment & Plan (07/19/2021 10:59 AM SUPERVISOR HAND WORKERS): - chronic, stable - diagnosed in childhood - no ongoing back pain - no hx of braces or surgery - will obtain imaging in future visits if cannot find one completed in medical records Dermatofibroma 07/19/2021 Assessment & Plan (07/19/2021 11:00 AM SUPERVISOR HAND WORKERS): - new diagnosis, noted on left lower extremity, discussed etiology and benign status, continue to monitor from time to time for changes in shape, size, color Resolved Problems Problem Noted Date Diagnosed Date Resolved Date Microscopic hematuria 07/19/20212023 Assessment & Plan (08/21/2022 10:22 AM SUPERVISOR HAND WORKERS): - reviewed outside records - noted in the past and was supposed to have repeat done - repeat UA with microscopy ordered - if consecutive abnormal findings, will refer to Urology Assessment & Plan (07/19/2021 10:53 AM SUPERVISOR HAND WORKERS): - new diagnosis - reviewed outside records [...] on file Legal Sex Male 1:28 PM SUPERVISOR [employer] WORKERS Gender Identity Not on file Sexual Orientation [...] Plan of Treatment Not on file Insurance [facility] [place] [id number] [facility] CHOICE PLUS [employer] P[employer] Care Teams Retail Sales Director Relationship Specialty Start Date End Date Deep Chang MD PCP - General Family Medicine 07/19/21
--- OUTSIDE RECORDS SUMMARY | 2024-09-14 23:29 | XMS_ITS | Clinical Summary ---
Author Organization [facility] Address [address] [place] [address] Care Team Providers Care Pen And Pencil Repairer Name Role Phone Deep Chang MD Primary Care Provider Allergies No known active allergies Medications No known medications Active Problems Problem Noted Date Diagnosed Date Prediabetes 09/11/2023 Assessment & Plan (09/11/2023 1:10 PM PHARMACY TECHNOLOGIST): - new, noted on lab work obtained [...] 07/19/2021 Assessment & Plan (09/10/2023 1:29 PM PHARMACY TECHNOLOGIST): Wt Readings from Last 3 Encounters: 09/10/23 107.2 kg (236 lb 4.8 oz) 12/02/22 104.3 kg (230 lb) 08/21/22 105.4 kg (232 lb 4.8 oz) Body mass index is 32.04 kg/m . - chronic, not at goal, worse --> small weight gain noted - BMI Follow-up includes: nutrition counseling, exercise counseling and education provided Assessment & Plan (08/21/2022 10:22 AM PHARMACY TECHNOLOGIST): Wt Readings from Last 3 Encounters: 08/21/22 105.4 kg (232 lb 4.8 oz) 08/02/22 106.1 kg (234 lb) 07/19/21 100.9 kg (222 lb 8 oz) Body mass index is 31.51 kg/m . - chronic, not at goal, small weight gain noted - BMI Follow-up includes: nutrition counseling, exercise counseling and education provided Assessment & Plan (07/19/2021 10:53 AM PHARMACY TECHNOLOGIST): Wt Readings from Last 3 Encounters: 07/19/21 100.9 kg (222 lb 8 oz) 07/07/21 99.8 kg (220 lb) Body mass index is 30.17 kg/m . - chronic, stable - BMI Follow-up includes: nutrition counseling, exercise counseling and education provided Preventative health care 07/19/2021 Assessment & Plan (09/11/2023 1:11 PM PHARMACY TECHNOLOGIST): - Acute concerns or chronic conditions that [...] N/A Assessment & Plan (08/21/2022 10:23 AM PHARMACY TECHNOLOGIST): - Acute concerns: no major acute concerns [...] N/A Assessment & Plan (07/19/2021 10:54 AM PHARMACY TECHNOLOGIST): - Acute concerns: discussed about hernia - [...] 07/19/2021 Assessment & Plan (09/10/2023 1:28 PM PHARMACY TECHNOLOGIST): - chronic, stable - small umbilical hernia without obstruction - discussed to continue monitoring given no symptoms and small size - avoid heavy lifting and things that would put a lot of abdominal pressure - aware of signs that would be an emergency, severe abdominal pain, hernia obstruction Assessment & Plan (08/21/2022 10:21 AM PHARMACY TECHNOLOGIST): - chronic, stable - small umbilical hernia without obstruction - discussed to continue monitoring given no symptoms and small size - avoid heavy lifting and things that would put a lot of abdominal pressure - aware of signs that would be an emergency, severe abdominal pain, hernia obstruction Assessment & Plan (07/19/2021 10:55 AM PHARMACY TECHNOLOGIST): - chronic, stable - small umbilical hernia without obstruction - discussed to continue monitoring given no symptoms and small size - avoid heavy lifting and things that would put a lot of abdominal pressure - can wear abdominal binder - discussed warning sings that would be an emergency, severe abdominal pain, hernia obstruction Scoliosis 07/19/2021 Assessment & Plan (09/10/2023 1:37 PM PHARMACY TECHNOLOGIST): - chronic, stable - diagnosed in childhood - no ongoing back pain - no hx of braces or surgery Assessment & Plan (07/19/2021 10:59 AM PHARMACY TECHNOLOGIST): - chronic, stable - diagnosed in childhood - no ongoing back pain - no hx of braces or surgery - will obtain imaging in future visits if cannot find one completed in medical records Dermatofibroma 07/19/2021 Assessment & Plan (07/19/2021 11:00 AM PHARMACY TECHNOLOGIST): - new diagnosis, noted on left lower extremity, discussed etiology and benign status, continue to monitor from time to time for changes in shape, size, color Resolved Problems Problem Noted Date Diagnosed Date Resolved Date Microscopic hematuria 07/19/20212023 Assessment & Plan (08/21/2022 10:22 AM PHARMACY TECHNOLOGIST): - reviewed outside records - noted in the past and was supposed to have repeat done - repeat UA with microscopy ordered - if consecutive abnormal findings, will refer to Urology Assessment & Plan (07/19/2021 10:53 AM PHARMACY TECHNOLOGIST): - new diagnosis - reviewed outside records [...] on file Legal Sex Male 1:28 PM PHARMACY TECHNOLOGIST Gender Identity Not on file Sexual Orientation [...] patient's age to complete this topic Insurance [facility] [place] [id number] [employer] [place] [id number] [facility] [place] [id number] [employer] [place] [id number] Care Teams Pen And Pencil Repairer Relationship Specialty Start Date End Date Deep Chang MD PCP - General Family Medicine 07/19/21
[2024-09-14] MEDS: ACETAMINOPHEN 500 MG TABLET 1000 MG PO (23:39)
[2024-09-14 23:41] LABS: Influenza A QL RT-PCR Positive (Negative); Influenza B QL RT-PCR Negative (Negative); RSV RNA, RT-PCR Negative (Negative); SARS-CoV-2 RNA PCR Negative (Negative)
[2024-09-15 00:02] VITALS: O2SAT 98
[2024-09-15 00:10] LABS: Strep Group A RT-PCR NOT DETECTED (Negative)
[2024-09-15 01:10] VITALS: BP 130/78; PULSE 79; RESP 16; O2SAT 95
== END 2024-09-15 01:12 | disposition home or self-care (01) ==
PROVIDERS: Student in an Organized Health Care Education/Training Program; Emergency Provider Physician Assistant; PCP Family Medicine
DX: J10.1 Influenza due to other identified influenza virus with other respiratory manifestations (principal); Z20.822 Contact with and (suspected) exposure to COVID-19
CPT/HCPCS: 71046; 87637; 87651; 99283; A9270